=== PATIENT | male | born 1970 | race Caucasian/White ===

== ENCOUNTER 2017-05-10 07:53 | Emergency (ER) | payer OTHER ==
[2017-05-10] MEDS ORDERED: Morphine 10 MG/ML Syringe IM ONE ×2 (08:19→10:23)
[2017-05-10] MEDS ORDERED: Morphine 10 MG/ML Syringe ONE (08:22)
[2017-05-10] MEDS ORDERED: Dicyclomine 10 MG Cap PO ONE (08:25)
--- NOTE | 2017-05-10 08:33 | EDM.PDOC ---
ED HPI GENERAL MEDICAL PROBLEM - General Chief Complaint: Abdominal Pain Stated Complaint: ABDOMINAL PAIN Time Seen by Provider: 05/10/17 08:10 Source of Information: Reports: Patient, Family History Limitations: Reports: No Limitations - History of Present Illness INITIAL COMMENTS - FREE TEXT/NARRATIVE: started to have stomach cramping a couple of days ago; he has a hx of abdominal cramping; it has progressively gotten worse. No fever, slight nausea, no vomiting; loose stool. 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; Onset: Gradual Duration: Day(s): (3) Location: Reports: Abdomen, Pelvis Quality: Reports: Pressure, Sharp, Stabbing Severity: Moderate Improves with: Reports: None Worsens with: Reports: None Associated Symptoms: Reports: Nausea/Vomiting ED ROS GENERAL - Review of Systems Review Of Systems: See Below Constitutional: Reports: Decreased Appetite Respiratory: Reports: No Symptoms Cardiovascular: Reports: No Symptoms GI/Abdominal: Reports: Nausea : Reports: No Symptoms Musculoskeletal: Reports: No Symptoms Skin: Reports: No Symptoms Neurological: Reports: No Symptoms Psychiatric: Reports: No Symptoms ED EXAM, GENERAL - Physical Exam Exam: See Below Exam Limited By: No Limitations General Appearance: Alert, WD/WN, No Apparent Distress Head: Atraumatic, Normocephalic Neck: Normal Inspection, Supple, Non-Tender, Full Range of Motion Respiratory/Chest: No Respiratory Distress, Lungs Clear, Normal Breath Sounds, No Accessory Muscle Use Cardiovascular: Regular Rate, Rhythm, No Edema GI/Abdominal: Tender, Other (hyperactive bs, semi firm; tender with palpitations ) Back Exam: Full Range of Motion Extremities: Normal Range of Motion, Non-Tender Neurological: Alert, Oriented, CN II-XII Intact Psychiatric: Normal Affect, Normal Mood Skin Exam: Warm, Dry, Intact Course - Vital Signs Last Recorded V/S: Last Vital Signs Temp 97.6 F 05/10/17 08:59 Pulse 77 05/10/17 08:59 Resp 20 05/10/17 08:59 BP 127/82 05/10/17 08:59 Pulse Ox 100 05/10/17 08:59 - Orders/Labs/Meds Orders: Active Orders 24 hr Category Date Time Status BASIC METABOLIC PANEL,BMP [CHEM] Stat Lab 05/10/17 08:30 Ordered CBC WITH AUTO DIFF [HEME] Stat Lab 05/10/17 08:30 Ordered UA W/MICROSCOPIC [URIN] Stat Lab 05/10/17 08:30 Uncollected Labs: Laboratory Tests 05/10/17 05/10/17 05/10/17 Range/Units 09:00 09:00 09:00 WBC 9.0 (4.0-11.0) K/uL RBC 4.60 (4.50-6.50) M/uL Hgb 14.9 (13.0-18.0) g/dL Hct 43.8 (40.0-54.0) % MCV 95 (76-96) fL MCH 32.4 H (27.0-32.0) pg MCHC 34.0 (31.0-35.0) g/dL RDW 12.3 (11.0-16.0) % Plt Count 132 L (150-400) K/uL MPV 10.8 H (6.0-10.0) fL Neut % (Auto) 70.8 H (45.0-70.0) % Lymph % (Auto) 15.1 L (20.0-40.0) % [place] % (Auto) 13.0 H (3.0-10.0) % Eos % (Auto) 0.9 L (1.0-5.0) % Baso % (Auto) 0.2 (0.0-0.5) % Neut # (Auto) 6.39 (2.00-7.50) K/uL Lymph # (Auto) 1.36 L (1.50-4.00) K/uL [place] # (Auto) 1.17 H (0.20-0.80) K/uL Eos # (Auto) 0.08 (0.04-0.40) K/uL Baso # (Auto) 0.02 (0.02-0.10) K/uL Sodium 139 (136-145) mmol/L Potassium 4.0 (3.5-5.1) mmol/L Chloride 105 (98-107) mmol/L Carbon Dioxide 26.8 (21.0-32.0) mmol/L Anion Gap 11.2 (5.0-15.0) mmol/L BUN 11 (8-26) mg/dL Creatinine 0.91 (0.70-1.30) mg/dL Est Cr Clr Drug Dosing TNP Estimated GFR (MDRD) > 60 (>60) MLS/MIN BUN/Creatinine Ratio 12.1 (6-25) Glucose 129 H (74-100) mg/dL Calcium 8.9 (8.5-10.1) mg/dL Urine Color Yellow Urine Appearance Clear (CLEAR) Urine pH 5.5 (5.0-8.0) Ur Specific [place] 1.015 (1.003-1.030) Urine Protein Negative (NEGATIVE) mg/dL Urine Glucose (UA) Negative (NEGATIVE) mg/dL Urine Ketones Negative (NEGATIVE) mg/dL Urine Occult Blood Negative (NEGATIVE) Urine Nitrite Negative (NEGATIVE) Urine Bilirubin Negative (NEGATIVE) Urine Urobilinogen 0.2 (0.2-1.0) E.U./dL Ur Leukocyte Esterase Negative (NEGATIVE) Meds: Medications Discontinued Medications Generic Name Dose Route Start Last Admin Trade Name Freq PRN Reason Stop Dose Admin Dicyclomine HCl 20 mg 05/10/17 08:25 05/10/17 08:20 Bentyl PO 05/10/17 08:26 20 mg ONETIME ONE Administration Morphine Sulfate 5 mg 05/10/17 08:19 05/10/17 08:28 Morphine IM 05/10/17 08:20 5 mg ONETIME ONE Administration Morphine Sulfate Confirm 05/10/17 08:22 05/10/17 08:33 Morphine Administered 05/10/17 08:23 Not Given Dose 10 mg .ROUTE .STK-MED ONE - Re-Assessments/Exams Free Text/Narrative Re-Assessment/Exam: 05/10/17 08:36 Given 4 mg of MS Bentyl 20 mg po Free Text/Narrative Re-Assessment/Exam: 05/10/17 09:34 Recieved 5 mg of MS; 2nd dose; pain is a 3-4 Departure - Departure Time of Disposition: 10:00 Disposition: Home, Self-Care 01 Condition: Good Clinical Impression: Abdominal spasms - Discharge Information Instructions: Dicyclomine tablets or capsules, Irritable Bowel Syndrome, Adult Referrals: PCP,None [Primary Care Provider] - Forms: ED Department Discharge, ED Return to Work/School Form - Problem List & Annotations (1) Abdominal spasms SNOMED Code(s): 27480749 Code(s): R10.9 - UNSPECIFIED ABDOMINAL PAIN Status: Acute Priority: High Current Visit: Yes - Problem List Review Problem List Initiated/Reviewed/Updated: Yes - My Orders Last 24 Hours: My Active Orders 05/10/17 08:30 BASIC METABOLIC PANEL,BMP [CHEM] Stat CBC WITH AUTO DIFF [HEME] Stat UA W/MICROSCOPIC [URIN] Stat - Assessment/Plan Last 24 Hours: My Active Orders 05/10/17 08:30 BASIC METABOLIC PANEL,BMP [CHEM] Stat CBC WITH AUTO DIFF [HEME] Stat UA W/MICROSCOPIC [URIN] Stat Assessment:: Abdominal spasms Plan: Discharge to home; Bentyl 20 mg q 8 hours for abdominal spasms He declined pain medication; has tramadol at home Labs are normal FU with PCP early next week
[2017-05-10] MEDS ORDERED: Dicyclomine 10 MG Cap ONE (08:45)
== END 2017-05-10 09:45 | disposition home or self-care (01) ==
LOC: LB.ED 07:53
DX: M62.838 Other muscle spasm (principal)
CPT/HCPCS: 36415; 80048; 81003; 85025; 96372; 99284; A9270; J2270